=== PATIENT | male | born 1945 | race Caucasian/White ===

== ENCOUNTER 2020-07-01 11:51 | Outpatient (RCR) | payer MEDICARE, OTHER, SELFPAY ==
[2019-05-19 12:25] VITALS: BMI 33.4
[2020-07-01] MEDS: COVID-19 VACC, MRNA(PFIZER)/PF 30 MCG/0.3 ML SYRINGE IM (16:53)
[2020-07-22] MEDS: COVID-19 VACC, MRNA(PFIZER)/PF 30 MCG/0.3 ML SYRINGE IM (16:25)
== END 2020-10-05 23:59 ==
LOC: IMMUN 11:51
PROVIDERS: Visit Provider Family Medicine
DX: Z23 Encounter for immunization (principal)
CPT/HCPCS: 0001A; 0002A; 91300

== ENCOUNTER 2022-12-08 23:36 | Emergency (ER) | payer MEDICARE, SELFPAY ==
[2022-12-08 23:37] VITALS: BP 154/99; PULSE 117; RESP 28; TEMP 37.1; O2SAT 90; BMI 32.5
--- NOTE | 2022-12-09 00:15 | EKG12_ITS ---
Test Reason : Dysrhythmia Blood Pressure : / mmHG Vent. Rate : 119 BPM Atrial Rate : 119 BPM P-R Int : 146 ms QRS Dur : 142 ms QT Int : 360 ms P-R-T Axes : 003 017 -18 degrees QTc Int : 506 ms Sinus tachycardia with occasional Premature ventricular complexes Right bundle branch block Inferior infarct , age undetermined T wave abnormality, consider lateral ischemia Abnormal ECG No previous ECGs available Confirmed by CHAVEZ HORVATH, LAURA ([id number]), general expeditor INDERJIT ENRIQUE ([id number]) on 02/16/2023 7:01:15 AM Referred By: Nargis Confirmed By:LAURA BYRNE MD
--- NOTE | 2022-12-09 00:16 | EX.ED.DYSGE1 ---
HPI History of Present Illness Chief Complaint: GI Bleed [facility] Medical History (Updated 12/09/22 @ 02:[address] Kaleb Barillas, DO) Diabetes Difficulty balancing HTN (hypertension) Limb weakness Home Medications lisinopril 40 mg tablet 40 mg PO DAILY 05/19/19 [History Last Taken Unknown] metformin 1,000 mg tablet 1,000 mg PO BID 05/19/19 [History Last Taken Unknown] simvastatin 40 mg tablet 40 mg PO DAILY 05/19/19 [History Last Taken Unknown] aspirin 81 mg tablet,delayed release (Adult Aspirin Regimen) 81 mg PO DAILY 12/08/22 [History Last Taken Unknown] ondansetron 4 mg disintegrating tablet 4 mg PO Q8H PRN nausea and vomiting 3 days #9 tabs 12/09/22 [Rx Last Taken Unknown] Allergy/AdvReac Type Severity Reaction Status Date / Time codeine Allergy Unknown Verified 12/08/22 23:37 Surgical History History of cataract surgery Social History (Updated 05/19/19 @ 12:44 by Steven MCKENZIE, PA) Smoking Status: Never smoker alcohol intake: never EXAM Physical Exam Const Vital Signs: 12/08/22 23:37 12/09/22 01:58 Temperature 98.7 F Temperature Source Oral Pulse Rate 117 H 105 H Respiratory Rate 28 H 22 H Blood Pressure 154/99 H 125/78 H Blood Pressure Mean 117 93 Pulse Ox 90 92 Oxygen Delivery Method Room Air MDM MDM MDM Narrative Medical decision making narrative: HISTORY OF PRESENT ILLNESS: 77-year-old male here with concern for hematemesis. States that started approximate 6 PM this evening. Denies blood thinner use. States he has been abdominal his abdomen feeling crappy states he vomited bright red blood. Notes history of similar but denies any evaluations by gastroenterology. Denies any blood thinner use. Denies any melena or hematochezia. Denies any chest pain. Denies abdominal pain. REVIEW OF SYSTEMS: Pertinent positives: Hematemesis Pertinent negatives: Chest pain, abdominal pain, fever, melena, hematochezia PHYSICAL EXAM: Nursing triage notes reviewed, Vital signs reviewed Constitutional: please see mdm HENT: MMM Eyes: Pupils equal round and reactive to light, Extraocular muscles intact Neck: No stridor, no JVD, full neck ROM Lungs: Clear to auscultation, No wheezing or rales. No increased work of breathing, no conversational dyspnea, no accessory muscle use, no nasal flaring. No respiratory distress noted Heart: Regular rate and rhythm, No murmurs, No rubs and No gallops, 2+ distal pulses (radial, femoral, posterior tibial) in all extremities Abdomen: Soft, there is no tenderness, rigidity, rebound or guarding, no obvious peritoneal signs, no palpable pulsatile abdominal masses, no auscultated abdominal bruit : No CVAT Extremities: No edema Neuro: No focal neurological deficits, cranial nerves II through XII intact, 5/5 strength in all extremities. Intact sensation to light touch in all extremities, 2+ reflexes bilateral patella tendons. Normal gait. No ataxia. Skin: No rash or lesions noted MEDICAL DECISION MAKING: Chief Complaint: Hematemesis External records reviewed: No recent ED visits or hospitalizations noted Factors affecting care: Hypertension, type 2 diabetes, hyperlipidemia, takes daily aspirin but no blood thinners noted Social determinants of health: Elderly History obtained from others: The patient's family Consults: none ALL IMAGES (IF OBTAINED) HAVE BEEN PERSONALLY REVIEWED AND INTERPRETED BY MYSELF. EKG with sinus tachycardia, right axis deviation, right bundle branch block, no obvious STEMI, no prior EKG for comparison MDM Narrative: Patient was initially tachycardic, tachypneic. He was in no acute distress. Abdominal exam was benign. I considered the following differential diagnosis: Esophageal varices, esophageal tear, peptic ulcer disease, Tamara-Reynaga, Boerhaave syndrome I obtained a broad lab and imaging work-up to further elucidate etiology the patient complaints. I obtained a chest x-ray to rule out evidence of a perforated esophagus. I obtained labs rule out significant anemia associated with GI bleeding. I obtained LFTs to rule out signs of liver dysfunction that would increase the patient's risk for esophageal varices. Labs are unremarkable for signs of significant anemia, hepatobiliary pathology, liver dysfunction or cirrhosis. X-ray was negative for evidence of Tamara-Reynaga or Boerhaave syndrome. Patient's upper GI bleed is unclear at this time but likely does not require emergent intervention. Did discuss observation with the patient given tachycardia, tachypnea hematemesis. He stated he would like to go home and follow-up with GI as an outpatient. He was alert and orient x3 and had capacity to make his own medical decisions and chose to be discharged home. Patient was able to tolerate p.o. prior to discharge home. Will discharge with p.o. [place]. The patient and/or family, caregivers express understanding. The patient and/or family, caregivers agrees with the plan. Shared decision making: I will have a discussion with the patient and or visitors regarding risk/benefits of further testing or admission. They will be made aware of of the risk/benefits inherent in this decision they will be given the opportunity to voice understanding. Total critical care time today provided was at least 0 minutes. This excludes separately billable procedures. Critical care time (if documented) is secondary to the patient having high probability of clinically significant/life threatening deterioration in the patient's condition which required my urgent intervention. Lab Data Attestation: I reviewed the patient's lab results. Lab results narrative: CBC without leukocytosis, severe anemia, no thrombocytopenia. BMP without evidence of significant electrolyte abnormalities, no anion gap, no acute kidney injury. LFTs show no evidence of hepatobiliary pathology. Lipase is wnl indicating no pancreatic inflammation. Labs: Laboratory Results - last 24 hr 12/08/22 12/09/22 23:40 00:55 WBC 11.0 RBC 4.71 Hgb 13.3 Hct 43.6 MCV 92.6 MCH 28.2 MCHC 30.5 L RDW Std Deviation 50.4 H RDW Coeff of Shilpa 14.7 H Plt Count 244 MPV 12.2 H Immature Gran % (Auto) 2.300 H Neut % (Auto) 74.5 H Lymph % (Auto) 12.6 L Denali % (Auto) 7.9 Eos % (Auto) 2.2 Baso % (Auto) 0.5 Absolute Neuts (auto) 8.2 H Absolute Lymphs (auto) 1.39 Nucleated RBC % 0 Sodium 138 Potassium 4.8 Chloride 104 Carbon Dioxide 28.0 Anion Gap 6 BUN 43 H Creatinine 1.26 Estim Creat Clear Calc 57.75 Est GFR (MDRD) Af Amer 71 Est GFR (MDRD) Non-Af 59 L BUN/Creatinine Ratio 34.1 H Glucose 240 H Calcium 9.1 Total Bilirubin 0.50 Direct Bilirubin 0.16 AST 22 ALT 29 Alkaline Phosphatase 72 Total Protein 6.8 Albumin 3.1 L Globulin 3.7 Lipase 39 Blood Type Cancelled O NEGATIVE Antibody Screen Cancelled NEGATIVE Radiography Chest X-Ray - ED: Read by ED Physician Diagnostic Testing: Clinical Impression(s) from Imaging Studies Chest X-Ray 12/09/22 00:48 IMPRESSION: No demonstrated acute cardiopulmonary process. Electronically Signed: Natalia Valencia MD at 1:21 EDT Reading Location ID and State: [facility] / [place] Tel , Service support , I have personally reviewed the patient's chest x-ray. Chest x-ray is unremarkable for pulmonary edema, pneumothorax, pneumonia or focal cardiopulmonary abnormality. Discharge Plan Triage Chief Complaint: GI Bleed ED Provider: Kaleb Barillas Dx/Rx/DC Orders Clinical Impression: History of COPD, Tachycardia, Hematemesis Prescriptions: New ondansetron 4 mg tablet,disintegrating 4 mg PO Q8H PRN (Reason: nausea and vomiting) 3 Days Qty: 9 0RF No Action metformin 1,000 mg tablet 1,000 mg PO BID lisinopril 40 mg tablet 40 mg PO DAILY simvastatin 40 mg tablet 40 mg PO DAILY aspirin [Adult Aspirin Regimen] 81 mg tablet,delayed release (DR/EC) 81 mg PO DAILY Primary Care Provider: [facility] Referrals: Francis Jerome DO [Med Staff - Active Staff] - Activity Restrictions/Additional Instructions: Thank you for trusting us with your care today! Take Zofran as needed. Please return to the emergency department if your symptoms change or worsen. Specifically develop worsening blood loss due to vomiting, you cannot tolerate food or fluids by mouth. If develop chest pain, lose consciousness or if your symptoms change or worsen in any way. Please follow with your primary care physician and gastroenterology (Dr. Jerome) for further outpatient evaluation and management. Disposition Disposition: Home, Self Care
[2022-12-09] MEDS: 0.9% Normal Saline 1,000 ML 1000 ML IV (00:23)
[2022-12-09] MEDS: Ondansetron 4 MG/2 ML Vial IV (00:23)
[2022-12-09 00:41] LABS: Absolute Lymphocyte Count 1.39 X10^3/uL (0.83-4.51); Absolute Neutrophil Count 8.2 X10^3/uL (2.0-7.7); Basophil# 0.06 X10^3/uL; Basophil% 0.5 % (0-1); Eosinophil# 0.24 X10^3/uL; Eosinophils% 2.2 % (0-5); Hematocrit 43.6 % (40-54); Hemoglobin 13.3 g/dL (13.0-16.5); Lymphocyte # 1.39 X10^3/ul (0.83-4.51); Lymphocyte % 12.6 % (19-41); Mean Corp Hgb Conc 30.5 g/dL (32-36); Mean Corpuscular Hgb 28.2 pg (27.0-32.0); Mean Corpuscular Volume 92.6 fL (80-94); Mean Platelet Vol. 12.2 fl (6.2-12.0); Monocyte# 0.87 X10^3/uL; Monocyte% 7.9 % (0-10); NRBC Flagged by Analyzer 0 % (0-5); Neutrophil % 74.5 % (47-70); Platelet Count 244 K/mm3 (150-450); RBC Distribution Width CV 14.7 % (11.6-14.6); RBC Distribution Width SD 50.4 fl (35.1-43.9); Red Blood Count 4.71 M/mm3 (4.6-6.2)
--- NOTE | 2022-12-09 00:48 | RAD_ITS ---
STUDY: X-RAY CHEST REASON FOR EXAM: Male, 77 years old. Hematemesis r/p pneumomediastinum TECHNIQUE: Single AP portable view of the chest. COMPARISON: None. FINDINGS: There is minimal interstitial prominence. There is a suggestion of minimal left lower lobe atelectasis. There is no demonstrated pleural abnormality. Normal size heart. Normal mediastinum and gail. Normal visualized pulmonary arteries. There is atherosclerotic calcification of the aortic arch with tortuosity. There are diffuse degenerative changes of the visualized thoracic spine. Normal visualized ribs, clavicles, and shoulders. There is no demonstrated abnormality of the visualized soft tissue structures of the upper abdomen. RAD/Chest 1 View (Portable) IMPRESSION: No demonstrated acute cardiopulmonary process. Electronically Signed: Natalia Valencia MD at 1:21 EDT ,
[2022-12-09 01:06] LABS: AST(SGOT) 22 U/L (15-37); Alanine Aminotransfer ALT/SGPT 29 U/L (16-61); Albumin, Serum 3.1 g/dL (3.2-5.0); Alkaline Phosphatase 72 U/L (45-117); Anion Gap 6 (5-15); BUN 43 mg/dL (7-18); BUN/Creat Ratio 34.1 RATIO (10-20); Bilirubin, Direct 0.16 mg/dL (0.00-0.30); Calcium,Total 9.1 mg/dL (8.5-10.1); Chloride 104 mmol/L (98-107); Creatinine, Serum 1.26 mg/dL (0.70-1.30); EST Glomerular Filtration Rate 59 mL/min (>60); Est Glom Filt Rate - Afr Amer 71 mL/min (>60); Estimated Creatinine Clearance 57.75 ml/min; Globulin 3.7 g/dL (2.2-4.2); Glucose 240 mg/dL (74-106); Lipase 39 U/L (13-75); Potassium 4.8 mmol/L (3.5-5.1); Protein, Total 6.8 g/dL (6.4-8.2); Sodium Level 138 mmol/L (136-145)
[2022-12-09] MEDS: Famotidine 200 MG/20 ML MDV 20 MG in 0.9% Normal Saline (Pres. free 8 ML 300 MG IV (01:56)
[2022-12-09 01:58] VITALS: BP 125/78; PULSE 105; RESP 22; O2SAT 92
[2022-12-09 02:45] VITALS: BP 104/58; PULSE 82; RESP 18; O2SAT 92
== END 2022-12-09 02:46 | disposition home or self-care (01) ==
PROVIDERS: Emergency Provider Emergency Medicine; Visit Provider Emergency Medicine
DX: R00.0 Tachycardia, unspecified (principal); E11.9 Type 2 diabetes mellitus without complications; K92.0 Hematemesis; E78.5 Hyperlipidemia, unspecified; I10 Essential (primary) hypertension; Z79.899 Other long term (current) drug therapy; Z79.82 Long term (current) use of aspirin; Z79.84 Long term (current) use of oral hypoglycemic drugs
CPT/HCPCS: 71045; 80048; 80076; 83690; 85025; 86850; 86900; 86901; 93005; 96365; 96375; 99283; J7030; A4216; J2405; J3490